=== PATIENT | female | born 1960 | race Caucasian/White ===

== ENCOUNTER 2019-07-10 08:51 | Day surgery (SDC) | payer MEDICARE, OTHER ==
[~2019-07-10] VITALS: Ht 154.9 cm; Wt 90.7 kg
[2019-07-10 09:11] LABS: HEMATOCRIT 47.8 % (36.0-48.0); HEMOGLOBIN 16.3 g/dL (12-16); MCH 32.2 pg (26.0-34.0); MCHC 34.1 g/dL (31.0-37.0); MCV 94.5 fL (80.0-100.0); MEAN PLATELET VOLUME 9.9 fL (7.4-10.4); RBC 5.06 10x6/uL (4.00-5.40); RDW 13.2 % (11.5-14.5); WBC 6.8 10x3/uL (4.8-10.8)
[2019-07-10 11:32] VITALS: BP 136/89; Ht 154.9 cm; Wt 90.7 kg
--- NOTE | 2019-07-10 16:44 | NUR ---
1521 IV DC'D. CATHETER TIP INTACT. NO BLEEDING NOTED. BANDAID APPLIED.
--- NOTE | 2019-07-18 13:38 | OP ---
PATIENT NAME: JENNIFER VICTORIA MEDICAL RECORD: [id number] :60 LOCATION:[address] ADMISSION DATE: SURGEON: LISSET MADDEN DATE OF OPERATION: 07/10/2019 SURGEON: Lisset Madden DPM PREOPERATIVE DIAGNOSES: 1. Hammertoe, second toe, right foot. 2. Metatarsalgia, second metatarsal, right foot. POSTOPERATIVE DIAGNOSES: 1. Hammertoe, second toe, right foot. 2. Metatarsalgia, second metatarsal, right foot. PROCEDURE: 1. Arthrodesis second proximal interphalangeal joint, right foot. 2. Jose osteotomy, second toe, right foot. ANESTHESIA: Local with monitored anesthesia care. HEMOSTASIS: Pneumatic ankle tourniquet inflated to 250 mmHg. ESTIMATED BLOOD LOSS: Minimal. MATERIALS: One 2.5 mm headless screw and one 2.5-mm headed screw both [employer]. INJECTABLES: 20 mL of 0.5% bupivacaine plain. The patient has longstanding history of pain associated with the above-mentioned deformities. She has tried wider shoes and padding to no avail. We have discussed the proposed procedures. Risks and benefits were discussed. Complications were reviewed. All questions were answered. She was appropriately consented for the above-mentioned procedure. The patient was brought to the operating room and placed on the operating table in supine position. A timeout was called with Dr. Madden, identified the patient, surgical site, and the surgery to be performed. Once appropriate anesthesia was obtained, the foot was prepped and draped in the usual aseptic manner. Pneumatic ankle tourniquet inflated to 250 mmHg on the well-padded right ankle. Attention was directed to the dorsal aspect of the second metatarsophalangeal joint where a 6 cm linear incision was made. This incision was carried deep through soft tissue with care being taken to retract all vital neurovascular structures. All bleeders were cauterized along the way. A 15 blade was then utilized to transect the extensor tendon from medial to lateral at the level of the proximal interphalangeal joint. The tendon was then dissected away from the head of the proximal phalanx and all soft tissue attachments were freed with a 15 blade. The head of the proximal phalanx was then resected utilizing a sagittal saw. The base of the middle phalanx was then denuded of all cartilage using curette and an osteotome. Attention was then redirected approximately to the level of the metatarsophalangeal joint. At this level, the soft tissue OPERATIVE REPORT [id number] TREVOR VICTORIAORES structures were noted to be contracted on the medial side of the second metatarsophalangeal joint. These structures were sharply transected. The periosteum was freed from the head of the second metatarsal. The second metatarsophalangeal joint was inspected and found to be free of arthritic changes. Next, utilizing manufacture's recommended technique, one 2.5-mm screw was placed across the proximal interphalangeal joint. Appropriate placement of the screw was confirmed via C-arm. The surgical site was then irrigated with copious amounts of normal sterile saline via bulb syringe. The toe was noted to rest in a more rectus position with placement of the screw. PROCEDURE #2: Jose osteotomy, second metatarsal head. Through and same incision, the second metatarsal head was identified and noted to be free of any defects in the head of the bone. Utilizing a sagittal saw, an osteotomy was created in the head of the second metatarsal. This was a dorsal distal to proximal plantar bone cut. The capital fragment was shifted proximally and temporarily fixated with a K-wire. Next, utilizing manufacture's recommended technique, one 2.5-mm screw was placed across the osteotomy. All remaining overhanging bone from the head of the second metatarsal was removed with a rongeur. Surgical site was then irrigated with copious amounts of normal sterile saline via bulb syringe. The periosteum and deeper soft tissue structures were reapproximated and coapted using 3-0 Vicryl. The extensor tendon was reapproximated and coapted using 3-0 Vicryl. The subq was reapproximated and closed with 4-0 Vicryl and the skin was reapproximated and coapted using 4-0 nylon. A dressing consisting of Xeroform, 4 x 4's, Kerlix, and Edu bandage was applied to the toe. The pneumatic ankle tourniquet was deflated and cap refill time is immediate to all digits of the left foot. The patient will be discharged home with instructions to ice and elevate the foot. She was dispensed a boot to further help offload the area. She has my cell phone number for any after trials and there were no complications with this procedure. Follow up in 1 week. TRANSINT:[id number] Voice Confirmation ID: [id number] DOCUMENT ID: [id number] LISSET MADDEN at 1338 CC: [id number] DICTATION DATE: 07/10/19 1508 WINDER TENDER: 07/11/19 0014 [facility] 07/10/19 [place] [id number]
== END 2019-07-10 15:40 | disposition home or self-care (01) ==
LOC: D.OPS 08:51
PROVIDERS: Anesthesiology; ATTEND Podiatrist
DX: M20.41 Other hammer toe(s) (acquired), right foot (principal); M77.41 Metatarsalgia, right foot

== ENCOUNTER → 2019-08-12 11:29 | Outpatient (CLI) | payer MEDICARE ==
[2019-07-10 11:32] VITALS: BMI 37.8
== END | disposition home or self-care (01) ==
LOC: D.US 11:29
PROVIDERS: ATTEND Podiatrist
DX: I82.401 Acute embolism and thrombosis of unspecified deep veins of right lower extremity (principal)